=== PATIENT | male | born 1990 | race Caucasian/White ===

== ENCOUNTER 2018-09-17 22:22 | Emergency (ER) | payer OTHER ==
[~2018-09-17] VITALS: Ht 180.3 cm; Wt 79.5 kg
[~2018-09-17 22:22] MED LIST: TYLENOL PM EXTR1 TA1 PO
[2018-09-17 22:55] LABS: HEMATOCRIT 49.9 % (42.0-52.0); HEMOGLOBIN 17.7 g/dl (13.5-18.0); MEAN CELL VOLUME 88 fl (80.0-100.0); MEAN CORPUSCULAR HEMOGLOBIN 31 pg (27.0-31.0); MEAN CORPUSCULAR HGB CONC 36 g/dl (33.0-37.0); MEAN PLATELET VOLUME 8.8 fl (7.4-10.4); PLATELET COUNT 297 K/mm3 (130-400); RED BLOOD COUNT 5.68 M/mm3 (4.20-5.60); REDCELL DISTRIBUTION WIDTH-CV 12.1 % (11.5-14.5)
[2018-09-17 23:08] LABS: ALANINE AMINOTRANSFERASE 47 U/L (21-72); ALBUMIN 5.4 gm/dL (3.5-5.0); ALKALINE PHOSPHATASE 124 U/L (50-136); ANION GAP 13 mmol/L (7-16); AST,SGOT 38 U/L (15-37); BLOOD UREA NITROGEN 15 mg/dL (9-20); C-REACTIVE PROTEIN < 0.5 mg/dL (0.0-0.9); CALCIUM 10.7 mg/dL (8.4-10.2); CARBON DIOXIDE 27 mmol/L (22-30); CHLORIDE 102 mmol/L (98-107); CREATININE, serum 1.01 mg/dL (0.66-1.25); GLUCOSE 130 mg/dL (74-106); LIPASE 113 U/L (23-300); POTASSIUM 3.8 mmol/L (3.4-5.0); SODIUM 142 mmol/L (137-145); TOTAL PROTEIN 9.7 gm/dL (6.4-8.2)
[2018-09-17 23:39] LABS: BAND 25 % (0-10); EOSINOPHIL 1 % (0-4); LYMPHOCYTE 7 % (20.0-51.0); NEUTROPHILS 61 % (42.0-75.2); PLATELET ESTIMATE NORMAL (NORMAL)
[2018-09-17 23:46] LABS: COLLECTION METHOD CLEAN CATCH
[2018-09-17 23:57] VITALS: TEMP 98.9
[2018-09-17 23:57] LABS: HYALINE CAST >12 /lpf; MUCOUS Present /lpf; PH 5 (5-8); SQUAMOUS EPITHELIAL 0-2 /hpf; URINE APPEARANCE Hazy; URINE BACTERIA Rare /hpf; URINE BILIRUBIN Positive (NEGATIVE); URINE BLOOD Negative (NEGATIVE); URINE COLOR Amber; URINE GLUCOSE Negative (NEGATIVE); URINE KETONE 2+ (NEGATIVE); URINE LEUKOCYTE ESTERASE Negative (NEGATIVE); URINE NITRATE Negative (NEGATIVE); URINE PROTEIN(semi-quant) 2+ (NEGATIVE); URINE RBC 0-2 /hpf
[2018-09-17] MEDS ORDERED: CHOLESTEROL MED PO (23:58)
[2018-09-18] MEDS ORDERED: ZOFRAN ODT4 MG PO (01:59)
[2018-09-18 02:19] VITALS: BP 117/81; PULSE 99
== END 2018-09-18 02:22 | disposition home or self-care (01) ==
LOC: COL.ER 22:22
PROVIDERS: Nurse Practitioner
DX: K52.9 Noninfective gastroenteritis and colitis, unspecified (principal); F12.90 Cannabis use, unspecified, uncomplicated
CPT/HCPCS: J2405; J2550; J7030; Q9967